=== PATIENT | male | born 1990 | race Caucasian/White ===

== ENCOUNTER 2016-07-14 10:01 | Emergency (ER) | payer OTHER ==
[2016-07-14 11:14] VITALS: BP 135/71
== END 2016-07-14 11:14 | disposition home or self-care (01) ==
LOC: ED 10:01
DX: K01.1 Impacted teeth (principal); Z88.1 Allergy status to other antibiotic agents

== ENCOUNTER 2016-07-25 17:03 | Emergency (ER) | payer OTHER ==
[~2016-07-25] VITALS: Ht 175.3 cm; Wt 117.5 kg
[2016-07-25 18:25] VITALS: BP 142/88
== END 2016-07-25 18:25 | disposition home or self-care (01) ==
LOC: ED 17:03
DX: L55.1 Sunburn of second degree (principal); R11.10 Vomiting, unspecified; R19.7 Diarrhea, unspecified; M79.1 Myalgia; Z79.899 Other long term (current) drug therapy; Z88.1 Allergy status to other antibiotic agents
CPT/HCPCS: J1885

== ENCOUNTER 2016-07-27 15:09 | Emergency (ER) | payer OTHER ==
[~2016-07-27] VITALS: Ht 175.3 cm; Wt 118.4 kg
[2016-07-27 15:23] VITALS: BP 146/83
== END 2016-07-27 17:33 | disposition home or self-care (01) ==
LOC: ED 15:09
DX: L55.1 Sunburn of second degree (principal); L55.0 Sunburn of first degree